=== PATIENT | male | born 1970 | race Caucasian/White ===

== ENCOUNTER 2019-12-11 00:16 | Day surgery (SDC) | payer BC, SELFPAY ==
[2019-12-05 11:10] VITALS: BMI 27.8
[2019-12-11 08:49] VITALS: BP 137/93; PULSE 65; RESP 16; TEMP 36.3; O2SAT 99; BMI 29.0
--- NOTE | 2019-12-11 08:59 | PM.HPGS ---
History of Present Illness History of Present Illness Consent: Risks, benefits, and alternatives have been discussed and questions answered. Patient agrees to proceed with procedure. Chief complaint: GERD, neoplasm screening Narrative: Ra Wilson is a 49 year old W male who is referred for EGD and colonoscopy. Patient has had increased heartburn for was placed on Nexium with marked improvement in his symptoms. Patient did have a gastroscopy a couple years ago there is no evidence of Marina's. Patient also undergoing 1st screening colonoscopy. States his mother had polyps and paternal uncle with colon cancer. Patient has no lower GI tract symptoms. [facility] Past Medical History Medical History (Updated 11/10/19 @ 10:39 by Malathi Pickard NP) Acute bronchitis Chronic pain GERD (gastroesophageal reflux disease) Headache Hypogonadism in male Muscle spasm Surgical History Surgical History (Updated 11/10/19 @ 10:03 by Adrianne Bergman CMA) H/O repair of rotator cuff 05/12/2019 Social History Social History (Updated 11/10/19 @ 10:04 by Adrianne Bergman CMA) Smoking status: Never smoker Alcohol intake: current Meds Home Medications and Allergies Home Medications Medication Instructions Recorded Confirmed Type tadalafil 20 mg tablet 20 mg PO DAILY PRN #18 tablet 11/06/19 12/05/19 Rx krill 300 mg-omega-3 90 mg-dha 27 1 cap PO DAILY cap 11/10/19 12/05/19 History mg-epa 45 ji-lfolczg-bryztun capsule multivitamin 1 tablet PO BID tablet 11/10/19 12/05/19 History zinc acetate 25 mg (zinc) capsule 25 mg PO DAILY 11/10/19 12/05/19 History esomeprazole magnesium [Nexium 20 mg PO QAM 12/05/19 12/05/19 History 24HR] vit C,N-Bx-xvimm-lutein-zeaxan 1 tablet PO BID 12/05/19 12/05/19 History [PreserVision AREDS-2] Allergies Allergy/AdvReac Type Severity Reaction Status Date / Time Penicillins AdvReac Unknown Unknown Verified 12/11/19 08:48 Vital Signs Vital Signs - 24 hr 12/11/19 08:49 Temperature 36.3 C L Pulse Rate 65 Respiratory Rate 16 Blood Pressure 137/93 H Pulse Oximetry 99 Exam Const: Orientation/consciousness: patient oriented x3 Resp: Auscultation: clear to auscultation bilaterally Cardio: Rate: regular rate Rhythm: regular rhythm Heart sounds: no murmurs GI: GI Palp: Yes Soft to palpation, No Tenderness to palpation present (GI), Yes No hepatosplenomegaly present and No Palpable mass present Auscultation: normal bowel sounds Neuro: General: patient oriented x3 and no focal motor deficits Extrem: General: no pedal edema Assessment and Plan Additional Plan EGD for refractory heartburn screening colonoscopy secondary family history of colon polyps and colon cancer
[2019-12-11] MEDS: LACTATED RINGERS 1,000 ML 150 ML IV CONT (09:18)
--- NOTE | 2019-12-11 09:25 | WPDANESEPPF ---
Anes - Initial Pre Proc Eval Procedure: Operation Date: 12/11/19 10:00 Proposed Procedures p Esophagogastroduodenoscopy & Screening Colonoscopy - Yo Burgess MD Date/Time: 12/11/19 09:25 Surgeon: Yo Burgess MD Pre Op Diagnosis: GERD, neoplasm screening Patient Data Age: 49 Gender: M Height: 5 ft 8 in Weight: 86.6 kg Last Vital Signs Temp 97.3 F L 12/11/19 08:49 Pulse 65 12/11/19 08:49 Resp 16 12/11/19 08:49 BP 137/93 H 12/11/19 08:49 Pulse Ox 99 12/11/19 08:49 Allergies Allergy/AdvReac Type Severity Reaction Status Date / Time Penicillins AdvReac Unknown Unknown Verified 12/11/19 09:19 Home Medications Medication Instructions Recorded Confirmed Type tadalafil 20 mg tablet 20 mg PO DAILY PRN #18 tablet 11/06/19 12/11/19 Rx krill 300 mg-omega-3 90 mg-dha 27 1 cap PO DAILY cap 11/10/19 12/11/19 History mg-epa 45 pd-jaqnely-rhrletf capsule multivitamin 1 tablet PO BID tablet 11/10/19 12/11/19 History zinc acetate 25 mg (zinc) capsule 25 mg PO DAILY 11/10/19 12/11/19 History esomeprazole magnesium [Nexium 20 mg PO QAM 12/05/19 12/11/19 History 24HR] vit C,P-Bm-dghao-lutein-zeaxan 1 tablet PO BID 12/05/19 12/11/19 History [PreserVision AREDS-2] Patient hx anesthesia problems: none Family hx anesthesia problems: none PMFSH Past Medical History Medical History (Updated 11/10/19 @ 10:39 by Malathi Pickard NP) Acute bronchitis Chronic pain GERD (gastroesophageal reflux disease) Headache Hypogonadism in male Muscle spasm Surgical History Surgical History (Updated 11/10/19 @ 10:03 by Adrianne Bergman CMA) H/O repair of rotator cuff 05/12/2019 Social History Social History (Updated 11/10/19 @ 10:04 by Adrianne Bergman CMA) Smoking status: Never smoker Alcohol intake: current Anes - Eval Final PreProcedure Day of Procedure 12/11/19 09:25 Patient weight: normal Heart: regular rate and rhythm Lungs: clear to auscultation Airway: Mallampati scale class II Neurological: alert and oriented Last oral intake: >/= 8 hours ASA classification: II Emergent: no Anesthetic plan: proceed Anesthesia type and monitoring: general GIVS and standard monitoring Informed Consent: The patient's anesthetic plan and its attendant risks and benefits were discussed with the patient/family/POA. Questions were solicited and answers provided to the satisfaction of the patient/family/POA.
[2019-12-11 09:52] VITALS: BP 143/100; PULSE 93; RESP 18; O2SAT 100
[2019-12-11 10:02] VITALS: BP 136/95; PULSE 66; RESP 18; O2SAT 100
[2019-12-11 10:12] VITALS: BP 154/100; PULSE 64; RESP 18; O2SAT 100
== END 2019-12-11 10:28 | disposition home or self-care (01) ==
PROVIDERS: PCP Internal Medicine; Visit Provider Internal Medicine Gastroenterology
PROC: 0DJ08ZZ Inspection of Upper Intestinal Tract, Via Natural or Artificial Opening Endoscopic (ICD-10-PCS; CPT 43235; principal; 2019-12-11 10:00)
DX: Z12.11 Encounter for screening for malignant neoplasm of colon (principal); D12.4 Benign neoplasm of descending colon; K64.4 Residual hemorrhoidal skin tags; Z83.71 Family history of colonic polyps; K21.0 Gastro-esophageal reflux disease with esophagitis; K29.50 Unspecified chronic gastritis without bleeding
CPT/HCPCS: 45380; 43239; 88305; J2704; J7120

== ENCOUNTER 2020-06-08 12:30 | Outpatient (CLI) | payer BC, SELFPAY ==
--- NOTE | ~2020-06-08 | CT_ITS ---
EXAMINATION: CT abdomen pelvis wo con DATE: 06/08/2020 12:47 INDICATION: Abdominal wall contusion. Struck with ball in the abdomen. Right flank pain. Difficulty u rinating. TECHNIQUE: Computed tomography (CT) of the abdomen and pelvis was performed without intravenous contr ast. Automated exposure control and iterative reconstruction technique were employed. Exam dose: 571 .41 mGy-cm total exam DLP. COMPARISON: None. FINDINGS: The lung bases are clear. Normal heart size. No pericardial or pleural effusion. Indeterminate 4 mm hypoattenuating lesion of the lateral segment left hepatic lobe. The liver is othe rwise unremarkable. The gallbladder is present. No bile duct or pancreatic duct dilatation. No pancre atic mass lesion or calcification. Normal splenic size. Normal morphology of the adrenal glands. No renal mass lesion is evident on this limited noncontrast examination. No urinary tract calculus or hydroureteronephrosis. The urinary bladder is unremarkable. Prostate calcifications. Normal caliber of the abdominal aorta. No intraperitoneal or retroperitoneal or pelvic mass lesion or adenopathy or ascites. Normal appendix. Diverticulosis of the sigmoid colon. No bowel obstruction, bowel wall thickening, pneumatosis or intr aperitoneal free air. Small fat-containing umbilical hernia. Moderately prominent degenerative disease at L5-S1 and L4-5. No suspicious osteolytic or osteoblastic lesions. No significant abnormality of the abdominal and pelvic crespo. IMPRESSION: Indeterminate 4 mm hypoattenuating lesion of the left hepatic lobe Diverticulosis of the colon Reviewed, dictated and finalized at [facility]. Reviewed, dictated and finalized at location A.
== END 2020-06-08 12:31 | disposition home or self-care (01) ==
LOC: ANHIMG 12:33
PROVIDERS: PCP Internal Medicine; Visit Provider Nurse Practitioner
DX: S30.1XXA Contusion of abdominal wall, initial encounter (principal); K57.30 Diverticulosis of large intestine without perforation or abscess without bleeding; K76.9 Liver disease, unspecified
CPT/HCPCS: 74176

== ENCOUNTER 2020-06-21 10:45 | Outpatient (CLI) | payer BC, SELFPAY ==
--- NOTE | ~2020-06-21 | MR_ITS ---
EXAMINATION: MR abdomen wo/w con DATE: 06/21/2020 11:58 INDICATION: Liver disease, unspecified. TECHNIQUE: Magnetic resonance imaging (MRI) of the abdomen was performed without and with 15 mL Multi [place] intravenous contrast. Sequences included coronal T2-weighted FS FSE, coronal and axial FS FIEST A, axial T2-weighted FSE, coronal LAVA-flex, axial STIR FSE, axial DWI, axial dual-echo T1-weighted F SPGR, and axial LAVA. Postcontrast sequences included coronal LAVA-flex and a time course of axial LA VA. COMPARISON: CT abdomen and pelvis 06/08/2020 FINDINGS: There is a 6 mm cyst in left hepatic lobe. The gallbladder is decompressed. A small filling defect in the gallbladder lumen may be a stone or sludge. The spleen, pancreas, adrenal glands, and kidneys ar e normal. There are no dilated loops of bowel. There are no pathologically enlarged lymph nodes. IMPRESSION: 1. 6 mm benign cyst in left hepatic lobe. Reviewed, dictated and finalized at location A.
[2020-06-21 11:24] LABS: Estimated Glomerular Filt Rate > 60
[2020-06-21 12:57] LABS: Prostate Specific Antigen 1.3 ng/mL (< OR = 4.0)
== END 2020-06-21 10:46 | disposition home or self-care (01) ==
PROVIDERS: PCP Internal Medicine; Visit Provider Nurse Practitioner
DX: R30.0 Dysuria (principal); K76.89 Other specified diseases of liver
CPT/HCPCS: 36415; 74183; 84153; A9577

== ENCOUNTER 2020-08-23 23:36 | Emergency (ER) | payer BC, SELFPAY ==
[2020-08-23 23:44] VITALS: BP 152/99; PULSE 80; RESP 14; TEMP 36.1; O2SAT 99
--- NOTE | 2020-08-24 00:15 | ED.GENADULT ---
HPI - General Adult General Chief complaint: Wound/Laceration Stated complaint: gash on chin Time Seen by Provider: 08/23/20 23:43 Source: RN notes reviewed History of Present Illness HPI narrative: Patient presents to emergency department from home for laceration. Patient states he is working on his car when he came up striking his chin on the car causing a laceration to his chin he notes mild venous bleeding denies any other trauma or injury states he is unsure of his last tetanus shot denies any other symptoms at this time. He denies any lesions inside his mouth Related Data Home Medications Medication Instructions Recorded Confirmed krill 300 mg-omega-3 90 mg-dha 27 1 cap PO DAILY cap 11/10/19 07/10/20 mg-epa 45 zm-wgbezxa-jgrhrig capsule multivitamin 1 tablet PO BID tablet 11/10/19 07/10/20 zinc acetate 25 mg (zinc) capsule 25 mg PO DAILY 11/10/19 07/10/20 PreserVision AREDS-2 1 tablet PO BID 12/05/19 07/10/20 Allergies Allergy/AdvReac Type Severity Reaction Status Date / Time Penicillins AdvReac Severe was a Verified 08/23/20 23:48 toddler Review of Systems Review of Systems: Narrative: Gen.: Denies fevers or chills HEENT: Reports facial laceration denies intraoral injury Neuro: Denies numbness, tingling, weakness Skin: See HPI Endo: Denies DM PMFSH Past Medical History Medical History (Updated 08/24/20 @ 01:18 by Luigi Coreas DO) Acute bronchitis Chronic pain GERD (gastroesophageal reflux disease) Headache Hypogonadism in male Muscle spasm Surgical History Surgical History H/O repair of rotator cuff 05/12/2019 Family History Family History Father Cerebrovascular accident, Onset Age: 62 Family history of coronary artery disease Patient's father is , Onset Age: 62 Family history of cardiovascular disease Mother Patient's mother is in good health Sibling Patient's brother is in good health Family history of coronary artery disease Family history of cardiovascular disease Social History Social History Smoking status: Former smoker Alcohol intake: current Exam Narrative: Exam Narrative: APPEARANCE: No acute distress, nontoxic, resting in bed Eyes: EOMI HEENT: Normocephalic, nares patent oral mucosa moist, no loose or avulsed teeth, no intraoral lesions 3 cm curved laceration over anterior chin that is linear and deep with no foreign bodies mild venous bleeding RESPIRATORY: No respiratory distress MUSCULOSKELETAl: Moves all extremities NEURO: Awake and alert. Following commands, speech normal, no focal deficits SKIN:: Warm, dry. Normal Color no rash. Course Course Emergency Course: Discussed with patient results of workup and diagnosis. Discussed need for follow-up with primary care, proper use of medication, and reasons to return to the emergency department. Patient understands and agrees to current treatment plan Vital Signs Vital signs: Vital Signs Temperature 96.9 F L 08/23/20 23:44 Pulse Rate 80 08/23/20 23:44 Respiratory Rate 14 08/23/20 23:44 Blood Pressure 152/99 H 08/23/20 23:44 Pulse Oximetry 99 08/23/20 23:44 Temperature 96.9 F L 08/23/20 23:44 Pulse Rate 80 08/23/20 23:44 Respiratory Rate 14 08/23/20 23:44 Blood Pressure 152/99 H 08/23/20 23:44 Pulse Oximetry 99 08/23/20 23:44 Procedures Laceration Laceration 1: ====== Skin Level ====== ====== Subcutaneous Layer ====== ====== Muscle Layer ====== ====== Tendon Layer ====== Dressincm laceration: Verbal consent was obtained prior to the procedure. The wound was cleaned with Betadine and irrigated with copious amounts of normal saline. Lidocaine 1% with epinephrine was used for anesthesia. Wound was explored is no foreign body seen. The wound was then closed
[2020-08-24] MEDS: TETANUS,DIPHTHERIA,AC PERTUSSIS ADULT (0.5 ML) BOOSTRIX IM (00:35)
[2020-08-24] MEDS: LIDO 1%/EPINEPHRINE 1:100,000 20 ML VIAL INFILTRATE (00:36)
[2020-08-24 01:36] VITALS: BP 148/84; PULSE 78; RESP 16; O2SAT 98
== END 2020-08-24 01:30 | disposition home or self-care (01) ==
PROVIDERS: Emergency Provider Emergency Medicine; PCP Internal Medicine
DX: S01.81XA Laceration without foreign body of other part of head, initial encounter (principal); K21.9 Gastro-esophageal reflux disease without esophagitis; Z87.891 Personal history of nicotine dependence; W22.8XXA Striking against or struck by other objects, initial encounter; Z23 Encounter for immunization
CPT/HCPCS: 12013; 90471; 90715; 99282

== ENCOUNTER 2020-09-24 12:45 | Outpatient (CLI) | payer BC, SELFPAY ==
--- NOTE | ~2020-09-24 | CT_ITS ---
EXAMINATION: CT abdomen pelvis w con EXAM DATE: 09/24/2020 13:03 INDICATION: R10.9 - Unspecified abdominal pain.. TECHNIQUE: Spiral CT of the abdomen and pelvis was performed following intravenous injection of 100 m L Omnipaque 350. Axial, coronal and sagittal images were reviewed. The dose-length product (DLP) fo r this examination was 554.30 mGy-cm. The exposure was tailored according to patient size (auto mA e xposure control), and iterative reconstruction (ASIR) was used as additional dose reduction technique . Comparison is made to prior examination from 06/08/2020. FINDINGS: The liver, spleen, adrenal glands and pancreas are unremarkable. Gallbladder is unremarkab le. No biliary obstruction. Portal and splenic veins are patent. Kidneys enhance symmetrically. T here is no hydronephrosis. The prostate is unremarkable. The bladder is unremarkable. There is no retroperitoneal or pelvic lymphadenopathy. Small umbilical fat-containing hernia. The appendix is normal. Probable ascending and transverse colonic wall edema, colitis. No free int raperitoneal gas. The heart is normal in size. There are no pericardial or pleural effusions. The lung bases are unremarkable. There are no osteoblastic or osteolytic lesions identified. IMPRESSION: 1. Probable right hemicolonic colitis. Correlate for any GI symptoms. 2. Small umbilical fat-containing hernia. Reviewed, dictated and finalized at location B. MOLDER
== END 2020-09-24 12:46 | disposition home or self-care (01) ==
PROVIDERS: PCP Internal Medicine; Visit Provider Nurse Practitioner
DX: K92.1 Melena (principal); R10.9 Unspecified abdominal pain; K42.9 Umbilical hernia without obstruction or gangrene
CPT/HCPCS: 74177; Q9967

== ENCOUNTER → 2020-11-28 12:07 | Outpatient (CLI) | payer BC, SELFPAY ==
[2020-11-29 22:51] LABS: SARS-CoV-2 RNA PCR Negative
== END ==
PROVIDERS: PCP Internal Medicine; Visit Provider Nurse Practitioner
DX: Z20.822 Contact with and (suspected) exposure to COVID-19 (principal); R05 Cough
CPT/HCPCS: C9803; U0003; U0005

== ENCOUNTER 2021-03-19 09:27 | Outpatient (CLI) | payer BC, SELFPAY ==
[2021-03-19 09:44] LABS: Basophils Absolute Auto 0.1 K/mm3 (0.0-0.1); Basophils Percent Auto 0.8 % (0.2-1.2); Eosinophils Absolute Auto 0.3 K/mm3 (0-0.3); Eosinophils Percent Auto 4.3 % (0-4.4); Hematocrit 44.6 % (42.0-52.0); Hemoglobin 15.3 g/dL (14.0-18.0); Immature Granulocyte Absolute 0.05 K/mm3 (0.00-0.031); Immature Granulocyte Percent A 0.6 % (0-0.5); Lymphocytes Absolute Auto 2.03 K/mm3 (0.9-3.2); Lymphocytes Percent Auto 25.6 % (18.3-44.2); Mean Corpuscular HGB Conc 34.3 g/dl (32-36); Mean Corpuscular Hemoglobin 29.9 pg (26-34); Mean Corpuscular Volume 87.3 fl (80-100); Mean Platelet Volume 8.7 fl (7.4-10.4); Monocytes Absolute Auto 0.5 K/mm3 (0.1-0.6); Monocytes Percent Auto 6.2 % (2.6-8.5); Neutrophils Percent Auto 62.5 % (45.5-73.1); Platelet Count Result 207 k/mm3 (150-375); Red Blood Count 5.11 M/mm3 (4.6-6.20); Red Cell Distribution Width 12.3 % (11.5-14.5); White Blood Count 7.9 K/mm3 (4.5-10.0)
[2021-03-19 09:59] LABS: Alanine Aminotransferase 36 U/L (4-50); Albumin Level 4.5 g/dL (3.5-5.1); Alkaline Phosphatase 71 U/L (38-126); Anion Gap 7 mmol/L (8-16); Aspartate Amino Transferase 31 U/L (17-59); Bilirubin,Total 0.6 mg/dL (0.2-1.3); Blood Urea Nitrogen 12 mg/dL (9-20); Calcium 9.4 mg/dL (8.4-10.2); Carbon Dioxide 29 mmol/L (22-30); Chloride 102 mmol/L (98-107); Cholesterol 235 mg/dL (0-200); Estimated Glomerular Filt Rate > 60; Glucose 90 mg/dL (75-110); HDL Direct 84 mg/dL; Potassium 4.3 mmol/L (3.4-5.0); Sodium 138 mmol/L (137-145); Triglycerides 82 mg/dL (<150)
[2021-03-19 10:10] LABS: LDL Cholesterol Direct 106 mg/dL
[2021-03-19 10:29] LABS: Prostate Specific Antigen 1.4 ng/mL (< OR = 4.0)
== END 2021-03-19 09:28 | disposition home or self-care (01) ==
PROVIDERS: PCP Internal Medicine; Visit Provider Nurse Practitioner
DX: N40.0 Benign prostatic hyperplasia without lower urinary tract symptoms (principal); Z13.228 Encounter for screening for other metabolic disorders; Z13.220 Encounter for screening for lipoid disorders
CPT/HCPCS: 36415; 80053; 80061; 84153; 85025

== ENCOUNTER → 2021-06-10 09:29 | Outpatient (CLI) | payer BC, SELFPAY ==
--- NOTE | ~2021-06-10 | MR_ITS ---
EXAMINATION: MR shoulder RT wo con DATE: 06/10/2021 10:36 INDICATION: Right shoulder pain. TECHNIQUE: Magnetic resonance imaging (MRI) of the right shoulder was performed without intravenous c ontrast. Sequences included axial PD-weighted FS FSE, coronal oblique PD-weighted FS FSE and T2-weigh daren FS FSE, and sagittal oblique T2-weighted FS FSE and T1-weighted FSE. COMPARISON: Right shoulder radiographs 05/26/2021 FINDINGS: Coracoacromial arch: The acromion undersurface is curved in morphology (type II). There is severe acromioclavicular joint osteoarthritis. There is mild subacromial/subdeltoid bursitis. Rotator cuff: There is mild supraspinatus tendinopathy and moderate infraspinatus tendinopathy. Teres minor tendon is normal. There is moderate subscapularis tendinopathy. No tear. There is no asymmetric fatty atroph y of the rotator cuff muscle bellies. Biceps tendon and glenoid labrum: Biceps tendon is in bicipital groove. There is mild intra-articular biceps tendinopathy. There is a t ear of glenoid labrum from 11:00 to 12:00 (SLAP tear). Fluid: There is no glenohumeral joint effusion. Bones/cartilage: The glenoid cartilage is normal. Humeral head cartilage is normal. IMPRESSION: 1. Moderate rotator cuff tendinopathy. No tear. 2. Severe acromioclavicular joint osteoarthritis. 3. SLAP tear. 4. Mild subacromial/subdeltoid bursitis. 5. Mild intra-articular biceps tendinopathy. Reviewed, dictated and finalized at location A.
== END ==
PROVIDERS: PCP Internal Medicine; Visit Provider Orthopaedic Surgery
DX: M19.011 Primary osteoarthritis, right shoulder (principal); S43.431A Superior glenoid labrum lesion of right shoulder, initial encounter; M75.51 Bursitis of right shoulder
CPT/HCPCS: 73221

== ENCOUNTER 2021-11-24 07:53 | Outpatient (CLI) | payer BC, SELFPAY ==
[2021-11-24 08:40] LABS: Basophils Absolute Auto 0.1 K/mm3 (0.0-0.1); Basophils Percent Auto 1.1 % (0.2-1.2); Eosinophils Absolute Auto 0.1 K/mm3 (0-0.3); Eosinophils Percent Auto 2.5 % (0-4.4); Hematocrit 41.8 % (42.0-52.0); Hemoglobin 14.3 g/dL (14.0-18.0); Immature Granulocyte Absolute 0.03 K/mm3 (0.00-0.031); Immature Granulocyte Percent A 0.5 % (0-0.5); Lymphocytes Absolute Auto 1.28 K/mm3 (0.9-3.2); Lymphocytes Percent Auto 23.1 % (18.3-44.2); Mean Corpuscular HGB Conc 34.2 g/dl (32-36); Mean Corpuscular Hemoglobin 30.2 pg (26-34); Mean Corpuscular Volume 88.4 fl (80-100); Monocytes Absolute Auto 0.5 K/mm3 (0.1-0.6); Monocytes Percent Auto 8.3 % (2.6-8.5); Neutrophils Absolute Auto 3.6 K/mm3 (1.3-6.7); Neutrophils Percent Auto 64.5 % (45.5-73.1); Platelet Count Result 216 k/mm3 (150-375); Red Blood Count 4.73 M/mm3 (4.6-6.20); Red Cell Distribution Width 12.7 % (11.5-14.5); White Blood Count 5.5 K/mm3 (4.5-10.0)
[2021-11-24 09:00] LABS: Alanine Aminotransferase 31 U/L (4-50); Albumin Level 4.4 g/dL (3.5-5.1); Alkaline Phosphatase 61 U/L (38-126); Anion Gap 5 mmol/L (8-16); Aspartate Amino Transferase 30 U/L (17-59); Bilirubin,Total 0.6 mg/dL (0.2-1.3); Blood Urea Nitrogen 13 mg/dL (9-20); Calcium 8.5 mg/dL (8.4-10.2); Carbon Dioxide 28 mmol/L (22-30); Chloride 102 mmol/L (98-107); Cholesterol 219 mg/dL (0-200); Estimated Glomerular Filt Rate > 60; Glucose 96 mg/dL (65-110); HDL Direct 70 mg/dL; Sodium 135 mmol/L (137-145); Triglycerides 60 mg/dL (<150)
[2021-11-24 09:12] LABS: LDL Cholesterol Direct 104 mg/dL
[2021-11-24 09:33] LABS: Prostate Specific Antigen 1.7 ng/mL (< OR = 4.0)
== END 2021-11-24 07:54 | disposition home or self-care (01) ==
LOC: ANHLAB 07:55
PROVIDERS: PCP Internal Medicine; Visit Provider Nurse Practitioner
DX: E78.5 Hyperlipidemia, unspecified (principal); I10 Essential (primary) hypertension; Z12.5 Encounter for screening for malignant neoplasm of prostate
CPT/HCPCS: 36415; 80053; 80061; 84153; 85025; G0103

== ENCOUNTER 2021-12-10 11:40 | Outpatient (CLI) | payer BC, SELFPAY ==
[2021-12-10 12:09] LABS: Add Urine Microscopic? YES; Appearance Urine Clear (Clear); Bilirubin Urine Negative (Negative); Blood Urine Negative (Negative); Color Urine Straw (Yellow); Glucose Urine UA Negative (Negative); Ketones Urine Negative (Negative); Leukocyte Esterase Ur Negative LEU/UL (Negative); Nitrate Urine Negative (Negative); Protein Urine Negative (Negative); RBC Urine 0-2 /hpf (0-2); Specific Grav Ur 1.008 (1.001-1.035); Urobilinogen Urine Negative mg/dL (<2.0); WBC Urine 0-3 /hpf
== END 2021-12-10 11:41 | disposition home or self-care (01) ==
LOC: ANHLAB 11:42
PROVIDERS: PCP Internal Medicine; Visit Provider Nurse Practitioner
DX: N40.0 Benign prostatic hyperplasia without lower urinary tract symptoms (principal)
CPT/HCPCS: 81001

== ENCOUNTER 2022-02-11 11:07 | Outpatient (CLI) | payer BC, SELFPAY ==
--- NOTE | ~2022-02-11 | XR_ITS ---
XR wrist RT min 3V DATE: 02/11/2022 11:27 INDICATION: Pain. First carpometacarpal joint osteoarthritis. TECHNIQUE: 4 views COMPARISON: 12/15/2019 right hand FINDINGS: There is joint space narrowing and mild spurring at the first carpometacarpal joint consist ent with osteoarthritis. There is osteoarthritic change at the second and third metacarpophalangeal joints. Benign appearing cysts are noted at the lunate, capitate and hamate bones. No fracture or dislocation, periosteal reaction or bone destruction, erosive change or chondrocalcino sis. IMPRESSION: Osteoarthritic changes Reviewed, dictated and finalized at location B. IMPRESSION: Osteoarthritic changes
== END 2022-02-11 11:08 | disposition home or self-care (01) ==
PROVIDERS: PCP Internal Medicine
DX: M19.031 Primary osteoarthritis, right wrist (principal)
CPT/HCPCS: 73110

== ENCOUNTER 2022-05-12 08:59 | Outpatient (CLI) | payer BC, SELFPAY ==
--- NOTE | ~2022-05-12 | US_ITS ---
US venous doppler LE RT DATE: 05/12/2022 09:33 INDICATION: Right thigh swelling and pain for one month TECHNIQUE: Real-time and color flow imaging and Doppler analysis of the veins of the right lower extr emity COMPARISON: None FINDINGS: Right greater saphenous vein is patent. There is spontaneous and phasic flow and normal aug mentation and color flow signal and normal compression of the deep veins of the right lower extremity . IMPRESSION: No evidence of deep venous thrombosis of right lower extremity Reviewed, dictated and finalized at [facility]. Reviewed, dictated and finalized at location B.
== END 2022-05-12 09:00 | disposition home or self-care (01) ==
PROVIDERS: PCP Internal Medicine; Visit Provider Clinical Nurse Specialist
DX: M79.661 Pain in right lower leg (principal); M79.89 Other specified soft tissue disorders
CPT/HCPCS: 93971

== ENCOUNTER 2022-06-04 10:11 | Outpatient (CLI) | payer BC, SELFPAY ==
--- NOTE | ~2022-06-04 | XR_ITS ---
EXAMINATION: XR hip RT min 2V DATE: 06/04/2022 10:30 INDICATION: Right hip pain. TECHNIQUE: 2 views of right hip were obtained. COMPARISON: None. FINDINGS: Bone alignment is normal. No fracture. There is mild right hip osteoarthritis. IMPRESSION: 1. Mild right hip osteoarthritis. Reviewed, dictated and finalized at location A.
== END 2022-06-04 10:12 | disposition home or self-care (01) ==
LOC: ANHIMG 10:16
PROVIDERS: PCP Internal Medicine; Visit Provider Clinical Nurse Specialist
DX: M16.11 Unilateral primary osteoarthritis, right hip (principal)
CPT/HCPCS: 73502

== ENCOUNTER → 2022-07-22 13:26 | Outpatient (CLI) | payer BC, SELFPAY ==
--- NOTE | ~2022-07-22 | MR_ITS ---
EXAMINATION: MR hip RT wo con DATE: 07/22/2022 14:50 INDICATION: Right hip pain. TECHNIQUE: Magnetic resonance imaging (MRI) of the right hip was performed without intravenous contra st. COMPARISON: Right hip radiographs 06/04/2022 FINDINGS: Bones/cartilage: Bone alignment is normal. No fracture. The hip joints demonstrate tiny osteophytes. Small field-of-vi ew images of right hip demonstrate partial-thickness cartilage loss superiorly and anterosuperiorly. Labrum: There is a tear of right acetabular labrum. Fluid: There is no hip joint effusion. There is mild bilateral trochanteric bursitis. Soft tissues: The hamstring tendon origins are normal. The iliopsoas tendons are normal. There is mild bilateral gl uteus minimus tendinopathy. The gluteus medius tendons are normal. IMPRESSION: 1. Mild osteoarthritis of the hips. Reviewed, dictated and finalized at location B.
== END ==
PROVIDERS: PCP Internal Medicine; Visit Provider Nurse Practitioner Family
DX: M16.11 Unilateral primary osteoarthritis, right hip (principal)
CPT/HCPCS: 73721

== ENCOUNTER 2022-10-13 07:45 | Outpatient (CLI) | payer BC, SELFPAY ==
[2022-10-13 08:08] LABS: Basophils Percent Auto 0.6 % (0.2-1.2); Eosinophils Absolute Auto 0.2 K/mm3 (0-0.3); Eosinophils Percent Auto 4.3 % (0-4.4); Hematocrit 42.7 % (42.0-52.0); Hemoglobin 14.6 g/dL (14.0-18.0); Immature Granulocyte Absolute 0.03 K/mm3 (0.00-0.031); Immature Granulocyte Percent A 0.6 % (0-0.5); Lymphocytes Absolute Auto 1.37 K/mm3 (0.9-3.2); Lymphocytes Percent Auto 29.2 % (18.3-44.2); Mean Corpuscular HGB Conc 34.2 g/dl (32-36); Mean Corpuscular Hemoglobin 30.6 pg (26-34); Mean Corpuscular Volume 89.5 fl (80-100); Mean Platelet Volume 8.8 fl (7.4-10.4); Monocytes Absolute Auto 0.4 K/mm3 (0.1-0.6); Monocytes Percent Auto 9.2 % (2.6-8.5); Neutrophils Absolute Auto 2.6 K/mm3 (1.3-6.7); Neutrophils Percent Auto 56.1 % (45.5-73.1); Platelet Count Result 199 k/mm3 (150-375); Red Blood Count 4.77 M/mm3 (4.6-6.20); Red Cell Distribution Width 12.5 % (11.5-14.5); White Blood Count 4.7 K/mm3 (4.5-10.0)
[2022-10-13 08:16] LABS: Alanine Aminotransferase 39 U/L (6-50); Albumin Level 4.2 g/dL (3.5-5.1); Alkaline Phosphatase 52 U/L (38-126); Anion Gap 6 mmol/L (8-16); Aspartate Amino Transferase 32 U/L (17-59); Bilirubin,Total 0.5 mg/dL (0.2-1.3); Blood Urea Nitrogen 11 mg/dL (9-20); Calcium 8.7 mg/dL (8.4-10.2); Carbon Dioxide 27 mmol/L (22-30); Chloride 104 mmol/L (98-107); Cholesterol 239 mg/dL (0-200); Estimated Glomerular Filt Rate > 60; Glucose 97 mg/dL (65-110); HDL Direct 74 mg/dL; Potassium 4.1 mmol/L (3.4-5.0); Sodium 137 mmol/L (137-145); Triglycerides 74 mg/dL (<150)
[2022-10-13 08:27] LABS: LDL Cholesterol Direct 104 mg/dL
[2022-10-13 08:54] LABS: HIV 1/2 Ab P24 Ag Result Negative (Negative)
[2022-10-13 09:34] LABS: Hepatitis C Virus Antibody Negative (Negative)
[2022-10-13 10:17] LABS: Rapid Plasma Reagin Non-Reactive (NonReactive)
[2022-10-19 10:05] LABS: Herpes Simplex Type 1 DNA PCR Not Detected
[2022-10-19 10:06] LABS: Herpes Simplex Type 2 DNA PCR Not Detected
== END 2022-10-13 07:46 | disposition home or self-care (01) ==
LOC: ANHLAB 07:48
PROVIDERS: PCP Internal Medicine; Visit Provider Clinical Nurse Specialist
DX: N48.9 Disorder of penis, unspecified (principal); Z13.228 Encounter for screening for other metabolic disorders; Z12.5 Encounter for screening for malignant neoplasm of prostate; Z13.220 Encounter for screening for lipoid disorders; R21 Rash and other nonspecific skin eruption
CPT/HCPCS: 36415; 80053; 80061; 84153; 85025; 86592; 86703; 86803; 87529; G0103; G0432

== ENCOUNTER 2023-01-12 13:51 | Emergency (ER) | payer BC, SELFPAY ==
--- NOTE | ~2023-01-12 | CT_ITS ---
EXAMINATION: CT abdomen pelvis w con DATE: 01/12/2023 15:22 INDICATION: Right flank pain. TECHNIQUE: Computed tomography (CT) of the abdomen and pelvis was performed without intravenous contr ast. Automated exposure control and iterative reconstruction technique were employed. The dose-length product was 493.65 mGy-cm. COMPARISON: CT abdomen and pelvis 09/24/2020 FINDINGS: The visualized portions of the lung bases demonstrate mild atelectasis. No pleural effusion . The heart size is normal. No pericardial effusion. There is a 6 mm cyst in the liver. The gallbladd er, spleen, pancreas, adrenal glands, and kidneys are normal. There are no dilated loops of bowel. Th e appendix is normal. The prostate is mildly enlarged. There is an umbilical hernia containing fat. T here are no pathologically enlarged lymph nodes. There is no free intraperitoneal fluid. There is pro minent fat in left inguinal canal that may be a hernia. There is severe lower lumbar spondylosis. IMPRESSION: 1. Umbilical hernia containing fat. Reviewed, dictated and finalized at location A.
[2023-01-12 14:01] VITALS: BP 124/85; PULSE 91; RESP 17; TEMP 36.4; O2SAT 97
[2023-01-12 14:12] LABS: Basophils Percent Auto 0.6 % (0.2-1.2); Eosinophils Absolute Auto 0.1 K/mm3 (0-0.3); Eosinophils Percent Auto 0.8 % (0-4.4); Hematocrit 44.5 % (42.0-52.0); Hemoglobin 15.4 g/dL (14.0-18.0); Immature Granulocyte Absolute 0.05 K/mm3 (0.00-0.031); Immature Granulocyte Percent A 0.8 % (0-0.5); Lymphocytes Percent Auto 18.3 % (18.3-44.2); Mean Corpuscular HGB Conc 34.6 g/dl (32-36); Mean Corpuscular Hemoglobin 30.6 pg (26-34); Mean Corpuscular Volume 88.3 fl (80-100); Mean Platelet Volume 8.6 fl (7.4-10.4); Monocytes Absolute Auto 0.4 K/mm3 (0.1-0.6); Monocytes Percent Auto 6.4 % (2.6-8.5); Neutrophils Absolute Auto 4.8 K/mm3 (1.3-6.7); Neutrophils Percent Auto 73.1 % (45.5-73.1); Platelet Count Result 220 k/mm3 (150-375); Red Blood Count 5.04 M/mm3 (4.6-6.20); Red Cell Distribution Width 12.2 % (11.5-14.5); White Blood Count 6.6 K/mm3 (4.5-10.0)
[2023-01-12 14:23] LABS: Alanine Aminotransferase 38 U/L (6-50); Albumin Level 4.5 g/dL (3.5-5.1); Alkaline Phosphatase 57 U/L (38-126); Anion Gap 7 mmol/L (8-16); Aspartate Amino Transferase 29 U/L (17-59); Bilirubin,Total 0.7 mg/dL (0.2-1.3); Blood Urea Nitrogen 11 mg/dL (9-20); Calcium 8.7 mg/dL (8.4-10.2); Carbon Dioxide 26 mmol/L (22-30); Chloride 102 mmol/L (98-107); Estimated CRCL calculation 109 ml/min; Estimated Glomerular Filt Rate > 60; Glucose 87 mg/dL (65-110); Sodium 135 mmol/L (137-145)
--- NOTE | 2023-01-12 14:31 | ED.GENADULT ---
HPI - General Adult General Chief complaint: Urogenital-Male Stated complaint: abdominal pain Time Seen by Provider: 01/12/23 14:24 Source: RN notes reviewed History of Present Illness HPI narrative: Patient presents emergency department from home for left flank pain. Patient states that symptoms again upon awaking this morning. States that he initially awoke with some diaphoresis and nausea and had an episode of nausea and vomiting with pain located in the left lower flank. States that the pain is continued to be aching in nature and does not radiate. He denies any fevers or chills he denies any chest pain shortness of breath diarrhea or any other symptoms. States he did take a tramadol for the pain with minimal relief Related Data Home Medications Medication Instructions Recorded Confirmed krill 300 mg-omega-3 90 mg-dha 27 1 cap PO DAILY 11/10/19 09/30/22 mg-epa 45 lb-pgyxhxy-nbszgwb capsule (Maximum [employer] Krill [place]-3) multivitamin 1 tablet PO BID 11/10/19 09/30/22 zinc acetate 25 mg (zinc) capsule 25 mg PO DAILY 11/10/19 09/30/22 (Galzin) vit C 250 mg-vit E 90 mg-zinc 40 1 tablet PO BID 12/05/19 09/30/22 mg-copper 1 zy-xjmind-melklv capsule (PreserVision AREDS-2) Allergies Allergy/AdvReac Type Severity Reaction Status Date / Time Penicillins AdvReac Severe was a Verified 01/12/23 14:48 toddler Review of Systems Review of Systems: Gen.: Denies fevers or chills ENT: Denies congestion Respiratory: Denies shortness of breath or cough CV: Denies chest pain or palpitations GI: Denies abdominal pain or diarrhea, reports nausea and vomiting Musculoskeletal: Denies back pain or muscle pain Neuro: Denies numbness, tingling, weakness or focal weakness Skin: Denies rash Except as documented, all other systems reviewed and negative [facility] Past Medical History Medical History Acute bronchitis Acute right hip pain Broken finger Chronic pain GERD (gastroesophageal reflux disease) Headache Hypogonadism in male Labral tear of hip joint Muscle spasm Right shoulder pain Surgical History Surgical History H/O repair of rotator cuff 05/12/2019 Family History Family History Father Cerebrovascular accident, Onset Age: 62 Family history of coronary artery disease Patient's father is , Onset Age: 62 Family history of cardiovascular disease Mother Patient's mother is in good health Sibling Patient's brother is in good health Family history of coronary artery disease Family history of cardiovascular disease Social History Social History (Updated 09/30/22 @ 15:37 by Hortencia Long [facility]) Smoking status: Never smoker Alcohol intake: current Alcohol use details: On average 6 drinks per week. Lack of Transportation: No Lack of Food: Sometimes True Current Housing: I Have Housing Concerned About Future Housing: No Difficulty Paying Gas/Electric Bills: No Difficulty Paying for Meds: No Currently Unemployed: No Education: Trade/Vocational Certificate Difficulty w/ Childcare or Family Care: No Exam Narrative: APPEARANCE: No acute distress, nontoxic, resting in bed EYES: EOMI HEENT: Normocephalic, atraumatic, OMM RESPIRATORY: No respiratory distress Clear to auscultation bilaterally with no rhonchi wheezing or rales. CARDIOVASCULAR: Regular rate and rhythm without murmurs rubs or gallops. ABDOMINAL: Soft, nontender, nondistended, no rebound or guarding for flank tenderness worse with rotation of the torso Back: No midline thoracic lumbar tenderness palpation tender palpation over left paravertebral muscles L2-4 MUSCULOSKELETAl: Moves all extremities. No clubbing, cyanosis or edema. NEURO: Awake and alert. Following commands, speech normal, no focal deficits SKIN:: Warm, dry. No rashes lesions or ab
[2023-01-12 14:35] VITALS: BP 149/94; PULSE 77; RESP 14; O2SAT 98
[2023-01-12] MEDS: SODIUM CHLORIDE 0.9% IV 1,000 ML 999 ML IV CONT (14:40)
[2023-01-12] MEDS: KETOROLAC 30 MG/ML VIAL (*BKC) IV PUSH (14:40)
[2023-01-12 14:48] LABS: Appearance Urine Clear (Clear); Bilirubin Urine Negative (Negative); Blood Urine Negative (Negative); Color Urine Yellow (Yellow); Glucose Urine UA Negative (Negative); Ketones Urine Trace mg/dL (Negative); Leukocyte Esterase Ur Negative LEU/UL (Negative); Nitrate Urine Negative (Negative); Protein Urine Negative (Negative); Specific Grav Ur 1.012 (1.001-1.035); Urobilinogen Urine 0.2 mg/dL (<2.0); pH Urine 5.5 (5.0-9.0)
[2023-01-12 14:55] LABS: Add Urine Microscopic? NO
[2023-01-12 15:31] VITALS: BP 134/81; PULSE 80; RESP 14; O2SAT 99
[2023-01-12 16:12] LABS: Lipase 78 U/L (23-300)
== END 2023-01-12 17:31 | disposition home or self-care (01) ==
PROVIDERS: Emergency Provider Emergency Medicine; PCP Internal Medicine
DX: R10.9 Unspecified abdominal pain (principal); K21.9 Gastro-esophageal reflux disease without esophagitis; K42.9 Umbilical hernia without obstruction or gangrene
CPT/HCPCS: 36415; 74177; 80053; 81003; 83690; 85025; 96361; 96374; 99284; J1885; J7030; Q9967

== ENCOUNTER 2023-11-11 08:07 | Outpatient (CLI) | payer BC, OTHER, SELFPAY ==
[2023-11-11 08:54] LABS: Alanine Aminotransferase 38 U/L (6-50); Albumin Level 4.1 g/dL (3.5-5.1); Alkaline Phosphatase 63 U/L (38-126); Anion Gap 2 mmol/L (8-16); Aspartate Amino Transferase 32 U/L (17-59); Bilirubin,Total 0.7 mg/dL (0.2-1.3); Blood Urea Nitrogen 11 mg/dL (9-20); Calcium 9.3 mg/dL (8.4-10.2); Carbon Dioxide 32 mmol/L (22-30); Chloride 104 mmol/L (98-107); Cholesterol 234 mg/dL (0-200); Estimated Glomerular Filt Rate > 60; Glucose 97 mg/dL (65-110); HDL Direct 83 mg/dL; Potassium 4.6 mmol/L (3.4-5.0); Sodium 138 mmol/L (137-145); Triglycerides 62 mg/dL (<150)
[2023-11-11 09:03] LABS: Basophils Percent Auto 0.7 % (0.2-1.2); Eosinophils Absolute Auto 0.3 K/mm3 (0-0.3); Eosinophils Percent Auto 4.6 % (0-4.4); Hematocrit 44.9 % (42.0-52.0); Hemoglobin 15.1 g/dL (14.0-18.0); Immature Granulocyte Absolute 0.03 K/mm3 (0.00-0.031); Immature Granulocyte Percent A 0.5 % (0-0.5); Lymphocytes Percent Auto 21.9 % (18.3-44.2); Mean Corpuscular HGB Conc 33.6 g/dl (32-36); Mean Corpuscular Hemoglobin 29.7 pg (26-34); Mean Corpuscular Volume 88.4 fl (80-100); Mean Platelet Volume 8.8 fl (7.4-10.4); Monocytes Absolute Auto 0.4 K/mm3 (0.1-0.6); Monocytes Percent Auto 6.8 % (2.6-8.5); Neutrophils Absolute Auto 3.6 K/mm3 (1.3-6.7); Neutrophils Percent Auto 65.5 % (45.5-73.1); Platelet Count Result 231 k/mm3 (150-375); Red Blood Count 5.08 M/mm3 (4.6-6.20); Red Cell Distribution Width 12.2 % (11.5-14.5); White Blood Count 5.5 K/mm3 (4.5-10.0)
[2023-11-11 09:04] LABS: LDL Cholesterol Direct 113 mg/dL
[2023-11-11 09:26] LABS: Prostate Specific Antigen 1.8 ng/mL (< OR = 4.0)
== END 2023-11-11 08:08 | disposition home or self-care (01) ==
LOC: ANHLAB 08:10
PROVIDERS: PCP Internal Medicine; Visit Provider Nurse Practitioner
DX: Z12.5 Encounter for screening for malignant neoplasm of prostate (principal); Z13.220 Encounter for screening for lipoid disorders; Z13.228 Encounter for screening for other metabolic disorders
CPT/HCPCS: 36415; 80053; 80061; 84153; 85025; G0103

== ENCOUNTER 2024-01-15 14:53 | Emergency (ER) | payer BC, OTHER, SELFPAY ==
--- NOTE | ~2024-01-15 | XR_ITS ---
EXAMINATION: XR chest 1V portable DATE: 01/15/2024 17:36 INDICATION: Near syncope. TECHNIQUE: A single frontal view of the chest was obtained. COMPARISON: Chest 2 views 02/15/2019 FINDINGS: There is no pneumonia, pleural effusion, or pneumothorax. The heart size is normal. There a re changes of distal left clavicle resection. IMPRESSION: 1. No acute cardiopulmonary disease. Reviewed, dictated and finalized at location E.
[2024-01-15 14:57] VITALS: BP 120/78; PULSE 91; RESP 14; TEMP 37.2; O2SAT 100
--- NOTE | 2024-01-15 15:00 | ECG_ITS ---
SEE SCANNED COPY FOR CONFIRMED REPORT MTDD
[2024-01-15 15:06] LABS: Glucose Point of Care 150 mg/dl (65-105)
--- NOTE | 2024-01-15 17:23 | ED.DIZZY ---
HPI - Dizziness General Chief Complaint: Syncope Stated Complaint: near syncopy Time Seen by Provider: 01/15/24 17:02 Source: patient Mode of arrival: ambulatory Limitations: no limitations History of Present Illness HPI Narrative: This is a 53-year-old male with PMH HTN, GERD who presents to the ED via EMS chief complaint of near-syncope that occurred just prior to arrival. Patient states that he was driving his car and started to feel diaphoretic and short of breath. He pulled over to the side of the road when he started to have blurry vision and thought that he might pass out. Patient reports that he was working in the yard all day prior to leaving for work. Reports taking his normal tramadol dose at 10:30 a.m. this morning. states that he was feeling a little nauseous and fatigued prior to leaving work and only got worse while he was in the car. Does report a short episode of blurred vision and left arm numbness that has since fully resolved. Denies any chest pain today or recent chest pain. States that shortness of breath has fully resolved. Denies recent illness, cough, abdominal pain, vomiting, headache, back pain. denies speech change, difficulty with ambulation, dizziness/vertigo. History of untreated hypertension. currently asymptomatic Related Data Home Medications Medication Instructions Recorded Confirmed krill 300 mg-omega-3 90 mg-dha 27 1 cap PO DAILY 11/10/19 11/23/23 mg-epa 45 [id number]-xnavygn-gkgigad capsule (Maximum Red Krill Burtrum-3) multivitamin 1 tablet PO BID 11/10/19 11/23/23 zinc acetate 25 mg (zinc) capsule 25 mg PO DAILY 11/10/19 11/23/23 (Galzin) vit C 250 mg-vit E 90 mg-zinc 40 1 tablet PO BID 12/05/19 11/23/23 mg-copper 1 as-seiysm-afongw capsule (PreserVision AREDS-2) tadalafil 5 mg tablet 5 mg PO DAILY 11/23/23 11/23/23 Allergies Allergy/AdvReac Type Severity Reaction Status Date / Time Penicillins AdvReac Severe was a Verified 11/23/23 09:34 toddler Review of Systems Review of Systems: All systems as dictated in [facility] Past Medical History Medical History (Updated 01/16/24 @ 00:02 by Background Daemon) Acute bronchitis Acute right hip pain Broken finger Chronic pain GERD (gastroesophageal reflux disease) Headache Hypogonadism in male Labral tear of hip joint Muscle spasm Right shoulder pain Surgical History Surgical History (Updated 11/23/23 @ 09:38 by Katharine Brooks [facility]) H/O repair of rotator cuff 05/12/2019 History of hand surgery (~07/2023) right hand Family History Family History Father Cerebrovascular accident, Onset Age: 62 Family history of coronary artery disease Patient's father is , Onset Age: 62 Family history of cardiovascular disease Mother Patient's mother is in good health Sibling Patient's brother is in good health Family history of coronary artery disease Family history of cardiovascular disease Social History Social History Smoking status: Never smoker Alcohol intake: current Alcohol use details: On average 6 drinks per week. Lack of Transportation: No Lack of Food: Sometimes True Current Housing: I Have Housing Concerned About Future Housing: No Difficulty Paying Gas/Electric Bills: No Difficulty Paying for Meds: No Currently Unemployed: No Education: Trade/Vocational Certificate Difficulty w/ Childcare or Family Care: No Exam Narrative: GENERAL: Well-appearing, well-nourished, and in no acute distress. HEAD: Normocephalic, atraumatic. EYES: PERRLA and EOMI. ENT: Nares clear, no rhinorrhea or epistaxis. Mucous membranes moist. Oropharynx without tonsillar hypertrophy exudate or other lesions. NECK: Supple. No adenopathy or masses. CHEST: No respiratory distress. Clear to auscultation. No wheezes rales or rhonchi HEART: Regular rate and rhythm. No
[2024-01-15 18:40] LABS: Basophils Absolute Auto 0.1 K/mm3 (0.0-0.1); Basophils Percent Auto 0.5 % (0.2-1.2); Eosinophils Absolute Auto 0.1 K/mm3 (0-0.3); Eosinophils Percent Auto 0.6 % (0-4.4); Hematocrit 45.2 % (42.0-52.0); Hemoglobin 15.5 g/dL (14.0-18.0); Immature Granulocyte Absolute 0.09 K/mm3 (0.00-0.031); Immature Granulocyte Percent A 0.8 % (0-0.5); Lymphocytes Percent Auto 11.1 % (18.3-44.2); Mean Corpuscular HGB Conc 34.3 g/dl (32-36); Mean Corpuscular Hemoglobin 30.2 pg (26-34); Mean Corpuscular Volume 87.9 fl (80-100); Mean Platelet Volume 8.6 fl (7.4-10.4); Monocytes Absolute Auto 0.7 K/mm3 (0.1-0.6); Monocytes Percent Auto 6.6 % (2.6-8.5); Neutrophils Absolute Auto 8.7 K/mm3 (1.3-6.7); Neutrophils Percent Auto 80.4 % (45.5-73.1); Platelet Count Result 231 k/mm3 (150-375); Red Blood Count 5.14 M/mm3 (4.6-6.20); Red Cell Distribution Width 12.5 % (11.5-14.5); White Blood Count 10.9 K/mm3 (4.5-10.0)
[2024-01-15 18:52] LABS: Partial Thromboplastin Time 24.3 Seconds (22.3-36.8); Prothrombin Time 13.4 Seconds (11.1-14.7)
[2024-01-15 18:54] LABS: D Dimer < 0.27 ug/mL (<0.48)
[2024-01-15 18:55] LABS: Alanine Aminotransferase 44 U/L (6-50); Alkaline Phosphatase 59 U/L (38-126); Anion Gap 6 mmol/L (4-12); Aspartate Amino Transferase 36 U/L (17-59); Bilirubin,Total 0.7 mg/dL (0.2-1.3); Blood Urea Nitrogen 15 mg/dL (9-20); Calcium 9.8 mg/dL (8.4-10.2); Carbon Dioxide 30 mmol/L (22-30); Chloride 102 mmol/L (98-107); Estimated Glomerular Filt Rate > 60; Glucose 95 mg/dL (65-110); Sodium 138 mmol/L (137-145)
[2024-01-15 19:06] LABS: NT Pro B Type Natriuretic Pept < 20 pg/mL (19.9-100); Troponin I < 0.012 ng/mL (0.000-0.034)
[2024-01-15 19:23] VITALS: BP 129/89; PULSE 79
[2024-01-15 19:24] VITALS: BP 127/92; PULSE 82
[2024-01-15 19:25] VITALS: BP 145/98; PULSE 91
--- NOTE | 2024-01-15 20:05 | PC.NURSE ---
CAITLYN Kaur stated that pt would be able to be discharged after a set of orthostatic vitals were once done. This RN perfromed a set of orthos and discharged pt and noticed when it came time to dispo pt there was no assessments (initial and focused) done by previous nurse. Charge nurse was notified.
== END 2024-01-15 19:47 | disposition home or self-care (01) ==
PROVIDERS: Emergency Provider Physician Assistant; PCP Internal Medicine
DX: R55 Syncope and collapse (principal); I10 Essential (primary) hypertension; K21.9 Gastro-esophageal reflux disease without esophagitis; I45.10 Unspecified right bundle-branch block
CPT/HCPCS: 36415; 71045; 80053; 82948; 83880; 84484; 85025; 85380; 85610; 85730; 93005; 99284

== ENCOUNTER 2024-02-14 10:04 | Outpatient (CLI) | payer BC, OTHER, SELFPAY ==
[2024-02-14 14:08] LABS: Basophils Absolute Auto 0.1 K/mm3 (0.0-0.1); Basophils Percent Auto 0.9 % (0.2-1.2); Eosinophils Absolute Auto 0.3 K/mm3 (0-0.3); Eosinophils Percent Auto 4.7 % (0-4.4); Hematocrit 46.4 % (42.0-52.0); Hemoglobin 15.2 g/dL (14.0-18.0); Immature Granulocyte Absolute 0.04 K/mm3 (0.00-0.031); Immature Granulocyte Percent A 0.7 % (0-0.5); Lymphocytes Absolute Auto 1.26 K/mm3 (0.9-3.2); Lymphocytes Percent Auto 21.7 % (18.3-44.2); Mean Corpuscular HGB Conc 32.8 g/dl (32-36); Mean Corpuscular Hemoglobin 29.7 pg (26-34); Mean Corpuscular Volume 90.8 fl (80-100); Mean Platelet Volume 9.3 fl (7.4-10.4); Monocytes Absolute Auto 0.4 K/mm3 (0.1-0.6); Monocytes Percent Auto 7.6 % (2.6-8.5); Neutrophils Absolute Auto 3.7 K/mm3 (1.3-6.7); Neutrophils Percent Auto 64.4 % (45.5-73.1); Platelet Count Result 243 k/mm3 (150-375); Red Blood Count 5.11 M/mm3 (4.6-6.20); Red Cell Distribution Width 12.3 % (11.5-14.5); White Blood Count 5.8 K/mm3 (4.5-10.0)
[2024-02-14 14:35] LABS: Alanine Aminotransferase 37 U/L (6-50); Albumin Level 4.6 g/dL (3.5-5.1); Alkaline Phosphatase 59 U/L (38-126); Anion Gap 6 mmol/L (4-12); Aspartate Amino Transferase 43 U/L (17-59); Bilirubin,Total 0.5 mg/dL (0.2-1.3); Blood Urea Nitrogen 14 mg/dL (9-20); Calcium 9.5 mg/dL (8.4-10.2); Carbon Dioxide 28 mmol/L (22-30); Chloride 106 mmol/L (98-107); Estimated Glomerular Filt Rate > 60; Glucose 72 mg/dL (65-110); Potassium 4.5 mmol/L (3.4-5.0); Sodium 140 mmol/L (137-145)
== END 2024-02-14 10:05 | disposition home or self-care (01) ==
PROVIDERS: PCP Nurse Practitioner; Visit Provider Nurse Practitioner
DX: Z01.818 Encounter for other preprocedural examination (principal)
CPT/HCPCS: 36415; 80053; 85025